=== PATIENT | male | born 1950 | race Caucasian/White ===

== ENCOUNTER 2019-06-06 12:26 | Emergency (ER) | payer MEDICARE ==
[2019-06-06] MEDS ORDERED: HEPARIN 5,000 UNIT/ML VIAL IVP STA (12:37)
[2019-06-06] MEDS ORDERED: ATORVASTATIN 40 MG TABLET PO STA (12:37)
[2019-06-06] MEDS ORDERED: METOPROLOL TARTRATE 50 MG TABLET PO STA (12:37)
[2019-06-06] MEDS ORDERED: ASPIRIN CHEW 81 MG TABLET PO STA (12:37)
[2019-06-06] MEDS ORDERED: HEPARIN 25000UNITS/500ML (D5W) 25,000 UNIT/500 ML BAG IV STA (12:37)
--- NOTE | 2019-06-06 12:38 | ED Physician Documentation ---
PD HPI CHEST PAIN - Stated complaint Stated Complaint: CP, COLD SWEAT, RT ARM PX - Chief complaint Chief Complaint: Cardiac - History obtained from History obtained from: Patient (69-year-old gentleman who is pretty healthy with the exception of depression had had some intermittent pains that he did not seek medical attention for over the last year. In the last 15 minutes at rest developed substernal chest pain radiating to both sides with cold sweats. Denies nausea or shortness of breath.) - Additional information Additional information: No history of heart disease. Never had a stress test. Does not take aspirin routinely. Review of Systems Ten Systems: 10 systems reviewed and negative Constitutional: reports: Sweats. denies: Fever, Chills Cardiac: denies: Palpitations Respiratory: denies: Dyspnea, Cough GI: denies: Abdominal Pain, Nausea PD PAST MEDICAL HISTORY - Past Medical History Past Medical History: Yes Psych: Depression - Present Medications Home Medications: Ambulatory Orders Medication Instructions Recorded Confirmed Citalopram [CeleXA] 0 mg DAILY 06/06/19 06/06/19 - Allergies Allergies/Adverse Reactions: Allergies Allergy/AdvReac Type Severity Reaction Status Date / Time atropine Allergy Anaphylaxis Verified 06/06/19 12:37 scopolamine Allergy Anaphylaxis Verified 06/06/19 13:02 - Social History Does the pt drink ETOH?: No - Family History Family history: reports: Non contributory PD ED PE NORMAL - Vitals Vital signs reviewed: Yes - General General: Alert and oriented X 3, No acute distress - HEENT HEENT: PERRL, EOMI - Neck Neck: Supple, no meningeal sign, No bony TTP - Cardiac Cardiac: RRR, No murmur - Respiratory Respiratory: No respiratory distress, Clear bilaterally - Abdomen Abdomen: Normal bowel sounds, Soft, Non tender - Back Back: No CVA TTP, No spinal TTP - Derm Derm: Normal color, Warm and dry - Extremities Extremities: No edema, No calf tenderness / cord - Neuro Neuro: Alert and oriented X 3, Normal speech - Psych Psych: Normal mood, Normal affect Results - Vitals Vitals: Vital Signs - 24 hr 06/06/19 06/06/19 06/06/19 12:30 12:34 12:52 Temperature 36.4 C L Heart Rate 73 91 66 Respiratory 18 16 16 Rate Blood Pressure 141/97 H 141/92 H 128/81 H O2 Saturation 100 24 L 100 Oxygen O2 Source Room air - EKG (time done) 1231 Rate: Rate (enter#) (79) Rhythm: NSR [place]: Normal Intervals: Normal [place] QRS: Normal Ischemia: ST elevation c/w ischemia (Inferior with anterior ST depression) Computer interpretation: Agree with computer - Labs Labs: Laboratory Tests 06/06/19 06/06/19 06/06/19 12:35 12:35 12:35 WBC 6.6 RBC 5.08 Hgb 15.2 Hct 45.8 MCV 90.2 MCH 29.9 MCHC 33.2 RDW 13.6 Plt Count 227 MPV 9.6 Neut # (Auto) 4.3 Lymph # (Auto) 1.5 [place] # (Auto) 0.5 Eos # (Auto) 0.1 Baso # (Auto) 0.0 Absolute Nucleated RBC 0.00 Nucleated RBC % 0.0 PT 12.5 INR 1.1 Sodium 136 Potassium 3.4 L Chloride 98 L Carbon Dioxide 26 Anion Gap 12.0 BUN 13 Creatinine 1.0 Estimated GFR (MDRD) 75 L Glucose 247 H Calcium 8.7 Total Bilirubin 0.8 AST 17 ALT 17 Alkaline Phosphatase 70 Troponin I High Sens Total Protein 7.2 Albumin 3.8 Globulin 3.4 Albumin/Globulin Ratio 1.1 Lipase 29 06/06/19 12:35 WBC RBC Hgb Hct MCV MCH MCHC RDW Plt Count MPV Neut # (Auto) Lymph # (Auto) [place] # (Auto) Eos # (Auto) Baso # (Auto) Absolute Nucleated RBC Nucleated RBC % PT INR Sodium Potassium Chloride Carbon Dioxide Anion Gap BUN Creatinine Estimated GFR (MDRD) Glucose Calcium Total Bilirubin AST ALT Alkaline Phosphatase Troponin I High Sens 81.1 H* Total Protein Albumin Globulin Albumin/Globulin Ratio Lipase PD MEDICAL DECISION MAKING - ED course ED course: 69-year-old gentleman with inferior STEMI, has only been in pain for about 15 minutes on arrival. Arrived by private vehicle. Accepted by Dr. Sukhi Moon to the [facility] ED for cardiology evaluation and presumed catheterization at 12:40 PM and cobras were completed. In the ED here he received heparin bolus and drip, aspirin, atorvastatin 80 mg, metoprolol 50 mg p.o. Nitrates were held given the inferior nature. Departure - Departure Disposition: 02 Transfer Acute Care Hosp Clinical Impression: ST elevation myocardial infarction (STEMI) of inferior wall Condition: Critical Discharge Date/Time: 06/06/19 12:55
[2019-06-06] MEDS ORDERED: MORPHINE 2 MG/ML CARPUJECT IVP STA (12:44)
[2019-06-06 12:48] LABS: BASOPHILS % (AUTO) 0.6 %; EOSINOPHILS # (AUTO) 0.1 10^3/uL (0.0-0.7); EOSINOPHILS % (AUTO) 2.1 %; HGB - HEMOGLOBIN 15.2 g/dL (14.0-18.0); LYMPHOCYTES # (AUTO) 1.5 10^3/uL (1.5-3.5); LYMPHOCYTES % (AUTO) 23.3 %; MEAN CORPUSCULAR HEMOGLOBIN 29.9 pg (27.0-31.0); MEAN CORPUSCULAR HGB CONC 33.2 g/dL (32.0-36.0); MEAN CORPUSCULAR VOLUME 90.2 fL (80.0-94.0); MEAN PLATELET VOLUME 9.6 fL (7.4-11.4); MONOCYTES # (AUTO) 0.5 10^3/uL (0.0-1.0); MONOCYTES % (AUTO) 8.2 %; NEUTROPHILS # (AUTO) 4.3 10^3/uL (1.5-6.6); NEUTROPHILS % (AUTO) 65.5 %; PLT - PLATELET COUNT 227 10^3/uL (130-450); RED BLOOD COUNT 5.08 10^6/uL (4.70-6.10); RED CELL DISTRIBUTION WIDTH 13.6 % (12.0-15.0); WHITE BLOOD COUNT 6.6 x10^3/uL (4.8-10.8)
[2019-06-06] MEDS ORDERED: MORPHINE 2 MG/ML CARPUJECT ONE (12:48)
[2019-06-06 12:54] VITALS: BP 128/81
[2019-06-06 12:54] LABS: INR 1.1 (0.8-1.2); PT - PROTHROMBIN TIME 12.5 secs (9.9-12.6)
--- NOTE | 2019-06-06 12:56 | XRAY Report ---
Reason: cp Procedure Date: 06/06/2019 Accession Number: [id number] / [id number] Procedure: XR - Chest 1 View X-Ray CPT Code: 47034 Final Report FULL RESULT: EXAM: CHEST RADIOGRAPHY EXAM DATE: 06/06/2019 12:46 PM. CLINICAL HISTORY: Cp. COMPARISON: None. TECHNIQUE: 1 view. FINDINGS: Lungs/Pleura: Central bronchial wall thickening is seen. No focal airspace consolidation. No pleural effusion or pneumothorax. Mediastinum: Within exam limitations, the cardiomediastinal contour is normal. Other: None. IMPRESSION: 1. Central bronchial wall thickening could reflect underlying reactive airways or bronchitis. No pneumonia. RADIA
[2019-06-06 13:02] LABS: ALBUMIN 3.8 g/dL (3.2-5.5); ALBUMIN/GLOBULIN RATIO 1.1 (1.0-2.2); BILIRUBIN,TOTAL 0.8 mg/dL (0.2-1.0); CALCIUM 8.7 mg/dL (8.5-10.3); TOTAL PROTEIN 7.2 g/dL (6.7-8.2)
== END 2019-06-06 12:55 | disposition short-term general hospital (02) ==
LOC: ED 12:26
DX: I21.19 ST elevation (STEMI) myocardial infarction involving other coronary artery of inferior wall (principal)
CPT/HCPCS: 36415; 71045; 80053; 83690; 84484; 85025; 85610; 93005; 96374; 96375; 99285; A9270

== ENCOUNTER 2019-08-25 10:20 | Emergency (ER) | payer MEDICARE ==
--- NOTE | 2019-08-25 10:39 | ED Physician Documentation ---
History of Present Illness - Stated complaint Stated Complaint: AFIB - Chief complaint Chief Complaint: Cardiac - History obtained from History obtained from: Patient - History of Present Illness Timing: Last night - Additonal information Additional information: 69-year-old male who has had a recent [place] and CABG has a history of paroxysmal atrial fibrillation. Last night he had an issue with a rapid irregular heart all night long. He had a restless night and is come into the emergency department this morning after talking to his primary care doctor.The patient recalls that he took metoprolol when his heart rate was rapid and irregular at the hospital after his surgery. He is on a dose of 12.5 mg twice per day. He did take his medication this morning. Review of Systems Constitutional: denies: Fever Eyes: denies: Decreased vision Ears: denies: Ear pain Nose: denies: Congestion Throat: denies: Sore throat Cardiac: reports: Palpitations. denies: Chest pain / pressure Respiratory: denies: Dyspnea, Cough GI: denies: Abdominal Pain, Nausea, Vomiting : denies: Dysuria PD PAST MEDICAL HISTORY - Past Medical History GI: Diverticulitis Psych: Depression - Past Surgical History Past Surgical History: No - Present Medications Home Medications: Ambulatory Orders Medication Instructions Recorded Confirmed Citalopram [CeleXA] 0 mg DAILY 06/06/19 06/06/19 - Allergies Allergies/Adverse Reactions: Allergies Allergy/AdvReac Type Severity Reaction Status Date / Time atropine Allergy Anaphylaxis Verified 08/25/19 10:26 scopolamine Allergy Anaphylaxis Verified 08/25/19 10:26 - Social History Does the pt smoke?: No Smoking Status: Never smoker Does the pt drink ETOH?: No Does the pt have substance abuse?: No PD ED PE NORMAL - Vitals Vital signs reviewed: Yes (Tachycardic) - General General: Alert and oriented X 3, No acute distress, Well developed/nourished - HEENT HEENT: Atraumatic, PERRL, EOMI - Neck Neck: Supple, no meningeal sign, No bony TTP - Cardiac Cardiac: No murmur, Other (Irregularly irregular rate and rhythm tachycardic at 110) - Respiratory Respiratory: No respiratory distress, Clear bilaterally - Abdomen Abdomen: Soft, Non tender - Back Back: No CVA TTP, No spinal TTP - Derm Derm: Normal color, Warm and dry, No rash - Extremities Extremities: No deformity, No edema - Neuro Neuro: Alert and oriented X 3, semiconductor package symbol stamper 2-12 intact, No motor deficit, No sensory deficit, Normal speech Eye Opening: Spontaneous Motor: Obeys Commands Verbal: Oriented GCS Score: 15 - Psych Psych: Normal mood, Normal affect Results - Vitals Vitals: Vital Signs - 24 hr 08/25/19 08/25/19 08/25/19 10:27 10:50 11:00 Temperature 36.8 C Heart Rate 110 H 102 H 115 H Respiratory 17 18 24 Rate Blood Pressure 104/68 118/76 118/76 O2 Saturation 97 100 98 08/25/19 08/25/19 08/25/19 11:26 11:42 12:28 Temperature Heart Rate 74 78 78 Respiratory 16 18 18 Rate Blood Pressure 120/82 H 119/85 H 121/60 O2 Saturation 98 100 98 Oxygen O2 Source Room air - EKG (time done) 1030 Rate: Rate (enter#) (115) Rhythm: Atrial fibrillation Ischemia: Normal ST segments Compare to prior EKG: Changed from prior EKG (SPT 06-06-2019 afib with rvr has developed, inferior ST elevation has resolved and the voltage is lower. ) Computer interpretation: Agree with computer - Labs Labs: Laboratory Tests 08/25/19 08/25/19 08/25/19 10:30 10:50 10:50 WBC 6.6 RBC 4.27 L Hgb 12.8 L Hct 39.4 L MCV 92.3 MCH 30.0 MCHC 32.5 RDW 14.1 Plt Count 162 MPV 10.2 Neut # (Auto) 4.3 Lymph # (Auto) 1.2 L [place] # (Auto) 0.8 Eos # (Auto) 0.3 Baso # (Auto) 0.1 Absolute Nucleated RBC 0.00 Nucleated RBC % 0.0 Sodium 138 Potassium 4.2 Chloride 105 Carbon Dioxide 26 Anion Gap 7.0 BUN 16 Creatinine 0.9 Estimated GFR (MDRD) 84 L Glucose 101 H Calcium 8.6 Total Bilirubin 0.5 AST 16 ALT 15 Alkaline Phosphatase 82 Troponin I High Sens B-Natriuretic Peptide Total Protein 6.9 Albumin 3.9 Globulin 3.0 Albumin/Globulin Ratio 1.3 Lipase 29 Urine Color YELLOW Urine Clarity CLEAR Urine pH 6.5 Ur Specific [place] 1.015 Urine Protein NEGATIVE Urine Glucose (UA) NEGATIVE Urine Ketones NEGATIVE Urine Occult Blood NEGATIVE Urine Nitrite NEGATIVE Urine Bilirubin NEGATIVE Urine Urobilinogen 0.2 (NORMAL) Ur Leukocyte Esterase NEGATIVE Ur Microscopic Review NOT INDICATED Urine Culture Comments NOT INDICATED 08/25/19 08/25/19 10:50 10:50 WBC RBC Hgb Hct MCV MCH MCHC RDW Plt Count MPV Neut # (Auto) Lymph # (Auto) [place] # (Auto) Eos # (Auto) Baso # (Auto) Absolute Nucleated RBC Nucleated RBC % Sodium Potassium Chloride Carbon Dioxide Anion Gap BUN Creatinine Estimated GFR (MDRD) Glucose Calcium Total Bilirubin AST ALT Alkaline Phosphatase Troponin I High Sens 15.6 B-Natriuretic Peptide 242 H Total Protein Albumin Globulin Albumin/Globulin Ratio Lipase Urine Color Urine Clarity Urine pH Ur Specific [place] Urine Protein Urine Glucose (UA) Urine Ketones Urine Occult Blood Urine Nitrite Urine Bilirubin Urine Urobilinogen Ur Leukocyte Esterase Ur Microscopic Review Urine Culture Comments - Rads (name of study) chest Radiology: Prelim report reviewed (Impression: No acute disease.), EMP read indepedently, See rad report PD MEDICAL DECISION MAKING - ED course Complexity details: reviewed old records, reviewed results, re-evaluated patient, considered differential, d/w patient, d/w retirement sales consultant (OPAL Kasper We will follow-up with the patient this afternoon and consider increasing the dose back to 25 mg twice daily with the metoprolol succinate.) ED course: 69-year-old male with a recent [place] and CABG has developed atrial fibrillation intermittently he had A. fib with RVR all night last night today he comes into the emergency department heart rate of 120 he is not in distress appears to be tolerating this well. He is administered a dose of diltiazem 20 mg i ntravenously and he converts. His laboratory and ancillary examinations are otherwise unremarkable. Departure - Departure Disposition: 01 Home, Self Care Clinical Impression: Atrial fibrillation with rapid ventricular response Condition: Stable Instructions: ED Afib Follow-Up: Soto López MD [Primary Care Provider] -
[2019-08-25 11:07] LABS: BILIRUBIN,URINE NEGATIVE (NEGATIVE); GLUCOSE, URINE (UA) NEGATIVE (NEGATIVE); KETONES,URINE (UA) NEGATIVE (NEGATIVE); LEUKOCYTE ESTERASE, URINE NEGATIVE (NEGATIVE); NITRITE,URINE NEGATIVE (NEGATIVE); OCCULT BLOOD,URINE NEGATIVE (NEGATIVE); PH,URINE 6.5 PH (5.0-7.5); PROTEIN,URINE NEGATIVE (NEGATIVE); UROBILINOGEN,URINE 0.2 (NORMAL) E.U./dL (NORMAL)
[2019-08-25 11:07] LABS: BASOPHILS # (AUTO) 0.1 10^3/uL (0.0-0.1); BASOPHILS % (AUTO) 0.9 %; EOSINOPHILS # (AUTO) 0.3 10^3/uL (0.0-0.7); EOSINOPHILS % (AUTO) 3.9 %; HGB - HEMOGLOBIN 12.8 g/dL (14.0-18.0); LYMPHOCYTES # (AUTO) 1.2 10^3/uL (1.5-3.5); LYMPHOCYTES % (AUTO) 18.4 %; MEAN CORPUSCULAR HGB CONC 32.5 g/dL (32.0-36.0); MEAN CORPUSCULAR VOLUME 92.3 fL (80.0-94.0); MEAN PLATELET VOLUME 10.2 fL (7.4-11.4); MONOCYTES # (AUTO) 0.8 10^3/uL (0.0-1.0); MONOCYTES % (AUTO) 11.8 %; NEUTROPHILS # (AUTO) 4.3 10^3/uL (1.5-6.6); PLT - PLATELET COUNT 162 10^3/uL (130-450); RED BLOOD COUNT 4.27 10^6/uL (4.70-6.10); RED CELL DISTRIBUTION WIDTH 14.1 % (12.0-15.0); WHITE BLOOD COUNT 6.6 x10^3/uL (4.8-10.8)
[2019-08-25] MEDS ORDERED: DILTIAZEM 50 MG/10 ML VIAL IVP ONE (11:08)
[2019-08-25 11:09] LABS: CLARITY,URINE CLEAR (CLEAR)
--- NOTE | 2019-08-25 11:09 | XRAY Report ---
Reason: chest pain Procedure Date: 08/25/2019 Accession Number: [id number] / [id number] Procedure: XR - Chest 1 View X-Ray CPT Code: 17588 Final Report FULL RESULT: PROCEDURE: Chest 1 View X-Ray INDICATIONS: chest pain TECHNIQUE: One view of the chest was acquired. COMPARISON: Chest radiograph dated 06/06/2019 FINDINGS: Surgical changes and devices: Sternotomy wires and CABG clips. Lungs and pleura: No pleural effusions or pneumothorax. Lungs are clear. Mediastinum: Mediastinal contours appear normal. Heart size is normal. Bones and chest wall: No suspicious bony lesions. Overlying soft tissues appear unremarkable. IMPRESSION: No acute disease Reviewed by: Johnathon Florence MD on 08/25/2019 11:07 AM PDT Approved by: Johnathon Florence MD on 08/25/2019 11:07 AM PDT Station ID: [id number]
[2019-08-25 11:23] LABS: ALBUMIN 3.9 g/dL (3.2-5.5); ALBUMIN/GLOBULIN RATIO 1.3 (1.0-2.2); BILIRUBIN,TOTAL 0.5 mg/dL (0.2-1.0); CALCIUM 8.6 mg/dL (8.5-10.3); CREATININE 0.9 mg/dL (0.6-1.2); TOTAL PROTEIN 6.9 g/dL (6.7-8.2)
[2019-08-25 12:28] VITALS: BP 121/60
== END 2019-08-25 12:40 | disposition home or self-care (01) ==
LOC: ED 10:20
DX: I48.91 Unspecified atrial fibrillation (principal)
CPT/HCPCS: 36415; 71045; 80053; 81001; 81003; 83690; 83880; 84484; 85025; 87086; 93005; 99284